=== PATIENT | male | born 1950 | race Two or more races ===

== ENCOUNTER 2017-12-08 20:19 | Inpatient (IN) | payer OTHER, MEDICAID ==
[~2017-12-08] VITALS: Ht 154.9 cm; Wt 62.6 kg
[2017-12-08] MEDS ORDERED: Solu-MEDROL 125mg Inj IVP ONE (20:30)
[2017-12-08] MEDS ORDERED: Albuterol ud Inhalation HHN ONE (20:30)
[2017-12-08] MEDS ORDERED: Ipratropium 0.02% Inh Soln 2.5ml UD HHN ONE (20:30)
--- NOTE | 2017-12-08 20:46 | Emergency Room Report ---
History of Present Illness General Chief Complaint: Dyspnea/Respdistress Source: EMS Present Illness HPI Patient presents with respiratory distress Patient upon arrival is unable to provide any history Patient unable to speak secondary to respiratory distress Paramedics report the patient has history of dialysis on Friday and Unknown regarding recent fevers Patient appears to have AV shunt in left upper arm Also has history of asthma History of present illness remains significantly limited Allergies: Coded Allergies: No Known Allergies (Unverified , 12/08/17) Patient History Limited by: medical condition Past Medical History: see triage record Pertinent Family History: unable to obtain Reviewed Nursing Documentation: PMH: Agreed; PSxH: Agreed Nursing Documentation-PMH Hx Dialysis: Yes - ESRD Review of Systems All Other Systems: limited - Other than the ones mentioned in the history of present illness all others are reviewed however they do stay limited due to the patient's mental status Physical Exam Vital Signs Date Time Temp Pulse Resp B/P (MAP) Pulse Ox O2 Delivery O2 Flow Rate FiO2 12/08/17 20:21 92 31 230/109 100 Bi-pap 12/08/17 20:29 50 Sp02 EP Interpretation: reviewed, normal General Appearance: severe distress - Shallow respirations respiratory distress Head: normocephalic, atraumatic Eyes: bilateral eye PERRL, bilateral eye EOMI ENT: normal pharynx, no angioedema Neck: supple, thyroid normal Respiratory: decreased breath sounds, accessory muscle use, other - Patient not moving air very well, very tight sounding, appears tachypneic, short of breath Cardiovascular #1: tachycardia Gastrointestinal: non tender, soft Musculoskeletal: normal inspection Neurologic: alert, oriented x3, responsive Skin: normal color, no rash Lymphatic: no adenopathy Procedures Critical Care Time Critical Care Time 50 minutes for multiple re-evaluations Initial critical presentation, respiratory distress concern for impending respiratory failure not including any procedural time, Medical Decision Making Diagnostic Impression: Primary Impression: Respiratory distress Additional Impression: ESRD (end stage renal disease) ER Course Patient is a fairly complex patient with multiple differential to consideration including but not limited to cardiac cardiopulmonary and vascular emergencies Patient was emergently placed on BiPAP Breathing treatment was also initiated patient has done significantly better with this Patient does not make any urine and diuretics have not been provided Patient requiring further close reevaluation continued care and ICU admission Labs Test 12/08/17 20:21 12/08/17 20:40 12/09/17 05:35 Arterial Blood pH 7.387 (7.350-7.450) Arterial Blood Partial Pressure CO2 48.8 mmHg (35.0-45.0) Arterial Blood Partial Pressure O2 138.2 mmHg (75.0-100.0) Arterial Blood HCO3 28.7 mmol/L (22.0-26.0) Arterial Blood Oxygen Saturation 98.1 % (92.0-98.0) Arterial Blood Base Excess 3.1 Chris Test Positive White Blood Count 10.5 K/UL (4.8-10.8) 7.5 K/UL (4.8-10.8) Red Blood Count 4.28 M/UL (4.70-6.10) 3.97 M/UL (4.70-6.10) Hemoglobin 11.4 G/DL (14.2-18.0) 10.6 G/DL (14.2-18.0) Hematocrit 36.6 % (42.0-52.0) 33.7 % (42.0-52.0) Mean Corpuscular Volume 85 FL (80-99) 85 FL (80-99) Mean Corpuscular Hemoglobin 26.5 PG (27.0-31.0) 26.8 PG (27.0-31.0) Mean Corpuscular Hemoglobin Concent 31.1 G/DL (32.0-36.0) 31.5 G/DL (32.0-36.0) Red Cell Distribution Width 14.4 % (11.6-14.8) 14.2 % (11.6-14.8) Platelet Count 197 K/UL (150-450) 190 K/UL (150-450) Mean Platelet Volume 7.9 FL (6.5-10.1) 8.6 FL (6.5-10.1) Neutrophils (%) (Auto) 78.0 % (45.0-75.0) % (45.0-75.0) Lymphocytes (%) (Auto) 9.2 % (20.0-45.0) % (20.0-45.0) Monocytes (%) (Auto) 5.8 % (1.0-10.0) % (1.0-10.0) Eosinophils (%) (Auto) 5.6 % (0.0-3.0) % (0.0-3.0) Basophils (%) (Auto) 1.3 % (0.0-2.0) % (0.0-2.0) Prothrombin Time 11.0 SEC (9.30-11.50) Prothromb Time International Ratio 1.1 (0.9-1.1) Activated Partial Thromboplast Time 22 SEC (23-33) Sodium Level 140 MMOL/L (136-145) 138 MMOL/L (136-145) Potassium Level 4.7 MMOL/L (3.5-5.1) 5.0 MMOL/L (3.5-5.1) Chloride Level 100 MMOL/L (98-107) 99 MMOL/L (98-107) Carbon Dioxide Level 31 MMOL/L (21-32) 27 MMOL/L (21-32) Anion Gap 9 mmol/L (5-15) 12 mmol/L (5-15) Blood Urea Nitrogen 42 mg/dL (7-18) 50 mg/dL (7-18) Creatinine 8.1 MG/DL (0.55-1.30) 9.1 MG/DL (0.55-1.30) Estimat Glomerular Filtration Rate 6.6 mL/min (>60) 5.8 mL/min (>60) Glucose Level 304 MG/DL (74-106) 286 MG/DL (74-106) Lactic Acid Level 1.50 mmol/L (0.4-2.0) Calcium Level 8.2 MG/DL (8.5-10.1) 8.1 MG/DL (8.5-10.1) Phosphorus Level 6.2 MG/DL (2.5-4.9) 5.3 MG/DL (2.5-4.9) Magnesium Level 2.4 MG/DL (1.8-2.4) Total Bilirubin 0.6 MG/DL (0.2-1.0) Aspartate Amino Transf (AST/SGOT) 36 U/L (15-37) Alanine Aminotransferase (ALT/SGPT) 29 U/L (12-78) Alkaline Phosphatase 127 U/L (46-116) Total Creatine Kinase 113 U/L (26-308) Creatine Kinase MB 1.3 NG/ML (0.0-3.6) Creatine Kinase MB Relative Index 1.1 Troponin I 0.000 ng/mL (0.000-0.056) 0.066 ng/mL (0.000-0.056) Pro-B-Type Natriuretic Peptide > 47789 pg/mL (0-125) Total Protein 7.5 G/DL (6.4-8.2) Albumin 3.7 G/DL (3.4-5.0) 3.4 G/DL (3.4-5.0) Globulin 3.8 g/dL Albumin/Globulin Ratio 1.0 (1.0-2.7) Lipase 185 U/L (73-393) Differential Total Cells Counted 100 Neutrophils % (Manual) 92 % (45-75) Lymphocytes % (Manual) 5 % (20-45) Monocytes % (Manual) 2 % (1-10) Eosinophils % (Manual) 0 % (0-3) Basophils % (Manual) 0 % (0-2) Band Neutrophils 1 % (0-8) Platelet Estimate Adequate Platelet Morphology Normal Hypochromasia 1+ C-Reactive Protein, Quantitative 2.7 mg/dL (0.00-0.90) EKG Diagnostic Results Rate: tachycardiac Rhythm: NSR ST Segments: other - Nonspecific ST/T-wave changes Rhythm Strip Diag. Results EP Interpretation: yes Rate: 110 Rhythm: no PVC's, no ectopy, other - Sinus tach Chest X-Ray Diagnostic Results Chest X-Ray Diagnostic Results : Chest X-Ray Ordered: Yes # of Views/Limited/Complete: 1 View Indication: Shortness of Breath EP Interpretation: Yes Interpretation: no consolidation, no pneumothorax, other - Cardiomegaly, pulmonary congestion Impression: Other - Acute CHF Electronically Signed by: Omar Villegas DO Last Vital Signs Date Time Temp Pulse Resp B/P (MAP) Pulse Ox O2 Delivery O2 Flow Rate FiO2 12/08/17 20:42 93 25 100 Bi-pap 50 12/08/17 20:21 230/109 Status: improved Disposition: ADMITTED INPATIENT Condition: Critical Omar Villegas DO Dec 08, 2017 20:46
[2017-12-08] MEDS ORDERED: JANUVIA25 MG ORAL (20:50)
[2017-12-08] MEDS ORDERED: CARVEDILOL3.125 MG ORAL (20:50)
[2017-12-08 20:55] VITALS: BP 191/98
[2017-12-08 21:11] LABS: BASOPHILS % (AUTO) 1.3 % (0.0-2.0); EOSINOPHILS % (AUTO) 5.6 % (0.0-3.0); HEMATOCRIT 36.6 % (42.0-52.0); HEMOGLOBIN 11.4 G/DL (14.2-18.0); LYMPHOCYTES % (AUTO) 9.2 % (20.0-45.0); MEAN CORPUSCULAR VOLUME 85 FL (80-99); MONOCYTES % (AUTO) 5.8 % (1.0-10.0); PLATELET COUNT 197 K/UL (150-450); RED BLOOD COUNT 4.28 M/UL (4.70-6.10); RED CELL DISTRIBUTION WIDTH 14.4 % (11.6-14.8); WHITE BLOOD COUNT 10.5 K/UL (4.8-10.8)
[2017-12-08 21:13] LABS: ANION GAP 9 mmol/L (5-15); BLOOD UREA NITROGEN 42 mg/dL (7-18); CALCIUM 8.2 MG/DL (8.5-10.1); CARBON DIOXIDE 31 MMOL/L (21-32); CHLORIDE 100 MMOL/L (98-107); CREATININE 8.1 MG/DL (0.55-1.30); POTASSIUM 4.7 MMOL/L (3.5-5.1); SODIUM 140 MMOL/L (136-145)
[2017-12-08 21:17] LABS: INR 1.1 (0.9-1.1)
[2017-12-08 21:27] LABS: ALANINE AMINOTRANSFERASE 29 U/L (12-78); ALBUMIN 3.7 G/DL (3.4-5.0); ALKALINE PHOSPHATASE 127 U/L (46-116); ASPARTATE AMINO TRANSFERASE 36 U/L (15-37); BILIRUBIN,TOTAL 0.6 MG/DL (0.2-1.0); CKMB 1.3 NG/ML (0.0-3.6); CREATINE KINASE 113 U/L (26-308); PHOSPHORUS 6.2 MG/DL (2.5-4.9)
[2017-12-08 22:30] VITALS: BP 179/72
[2017-12-08] MEDS ORDERED: Albuterol/Ipratropium 3ml neb HHN PRN (22:30)
[2017-12-08] MEDS ORDERED: Miralax 17gm pkt ORAL PRN (22:30)
[2017-12-08 23:00] VITALS: BP 190/82
[2017-12-09] VITALS (21 sets, daily range): BP systolic 140–193; BP diastolic 71–117
[2017-12-09 06:30] LABS: HEMATOCRIT 33.7 % (42.0-52.0); HEMOGLOBIN 10.6 G/DL (14.2-18.0); MEAN CORPUSCULAR VOLUME 85 FL (80-99); PLATELET COUNT 190 K/UL (150-450); RED BLOOD COUNT 3.97 M/UL (4.70-6.10); RED CELL DISTRIBUTION WIDTH 14.2 % (11.6-14.8); WHITE BLOOD COUNT 7.5 K/UL (4.8-10.8)
[2017-12-09] MEDS: NovoLOG Insulin Flexpen SUBQ SCH ×4 (06:46→21:07)
[2017-12-09 06:55] LABS: ALBUMIN 3.4 G/DL (3.4-5.0); ANION GAP 12 mmol/L (5-15); BLOOD UREA NITROGEN 50 mg/dL (7-18); CALCIUM 8.1 MG/DL (8.5-10.1); CARBON DIOXIDE 27 MMOL/L (21-32); CHLORIDE 99 MMOL/L (98-107); CREATININE 9.1 MG/DL (0.55-1.30); PHOSPHORUS 5.3 MG/DL (2.5-4.9); SODIUM 138 MMOL/L (136-145)
[2017-12-09] MEDS ORDERED: sitaGLIPtin 25mg tab ORAL SCH (09:00)
[2017-12-09] MEDS ORDERED: Heparin 5000 units/ml inj SUBQ SCH (09:00)
--- NOTE | 2017-12-09 10:46 | Pulmonolgy Critical Care Note ---
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, 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 with: nurses, 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, 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 image - Objective Last 24 Hour Vital Signs Date Time Temp Pulse Resp B/P (MAP) Pulse Ox O2 Delivery O2 Flow Rate FiO2 12/09/17 10:00 84 20 187/90 96 Nasal Cannula 2.0 12/09/17 09:20 76 16 98 Facial 28 12/09/17 09:00 83 19 175/117 98 Nasal Cannula 2.0 12/09/17 08:48 191/92 12/09/17 08:48 73 191/92 12/09/17 08:00 73 12/09/17 08:00 97.6 84 19 191/92 98 Bi-pap 50 97.6 12/09/17 07:35 75 18 100 Facial 50 12/09/17 07:35 98 18 Nasal Cannula 2.0 28 12/09/17 07:00 74 19 190/76 100 Bi-pap 50 12/09/17 06:00 66 18 170/73 100 Bi-pap 50 12/09/17 05:00 72 16 174/92 100 Bi-pap 50 12/09/17 04:51 70 17 100 Facial 50 12/09/17 04:00 97.8 78 21 189/81 100 Bi-pap 50 97.8 12/09/17 04:00 50.0 12/09/17 04:00 78 12/09/17 03:00 72 18 193/82 100 Bi-pap 50 12/09/17 02:41 74 23 100 Facial 50 12/09/17 02:00 74 20 188/86 100 Bi-pap 50 12/09/17 01:47 86 23 99 Bi-pap 50 12/09/17 01:31 82 24 100 Bi-pap 50 12/09/17 01:29 81 24 100 Facial 50 12/09/17 01:00 76 21 190/92 99 Bi-pap 50 12/09/17 00:00 60 16 185/89 100 Bi-pap 50 12/08/17 23:11 50.0 12/08/17 23:08 73 22 100 Facial 50 12/08/17 23:00 98.6 68 20 190/82 99 Bi-pap 50 98.6 12/08/17 23:00 70 12/08/17 22:30 98.0 25 179/72 100 Bi-pap 50 98.0 12/08/17 20:55 98.0 25 191/98 100 Bi-pap 50 98.0 12/08/17 20:55 93 25 Bi-pap 50 12/08/17 20:42 93 25 100 Bi-pap 50 12/08/17 20:33 92 31 100 Facial 50 12/08/17 20:29 92 31 100 Bi-pap 50 12/08/17 20:21 92 31 230/109 100 Bi-pap Status: awake Condition: critical HEENT: atraumatic Neck: full ROM Lungs: clear Heart: HR/BP stable Abdomen: soft, active bowel sounds, feeding tube Extremities: edema Accucheck: 265 Critical Care - Subjective ROS Limited/Unobtainable: Yes ICU Day: 1 Interval Events: 67 year old male with hx of HTN, DM, Asthma, ESRF, on HD, Tue, Thur, Sat, brought in by paramedics with respiratory distress. Pt was unable to give any history on presentation. His initial CXR sghoed pulmonary edema. She was put on BIPAP and transferred to ICU. Currently pt is comfortable, converses in [place]. FI02: 28 Sputum Amount: None I&O: Intake and Output 12/08/17 12/09/17 19:00 07:00 Intake Total 170 ml Output Total 30 ml Balance 140 ml Intake Oral 170 ml Output Urine Total 30 ml # Voids 1 CXR: pulmonary edema Labs: Laboratory Tests Test 12/08/17 20:21 12/08/17 20:40 12/09/17 05:35 Arterial Blood pH 7.387 (7.350-7.450) Arterial Blood Partial Pressure CO2 48.8 mmHg (35.0-45.0) H Arterial Blood Partial Pressure O2 138.2 mmHg (75.0-100.0) H Arterial Blood HCO3 28.7 mmol/L (22.0-26.0) H Arterial Blood Oxygen Saturation 98.1 % (92.0-98.0) H Arterial Blood Base Excess 3.1 Chris Test Positive White Blood Count 10.5 K/UL (4.8-10.8) 7.5 K/UL (4.8-10.8) Red Blood Count 4.28 M/UL (4.70-6.10) L 3.97 M/UL (4.70-6.10) L Hemoglobin 11.4 G/DL (14.2-18.0) L 10.6 G/DL (14.2-18.0) L Hematocrit 36.6 % (42.0-52.0) L 33.7 % (42.0-52.0) L Mean Corpuscular Volume 85 FL (80-99) 85 FL (80-99) Mean Corpuscular Hemoglobin 26.5 PG (27.0-31.0) L 26.8 PG (27.0-31.0) L Mean Corpuscular Hemoglobin Concent 31.1 G/DL (32.0-36.0) L 31.5 G/DL (32.0-36.0) L Red Cell Distribution Width 14.4 % (11.6-14.8) 14.2 % (11.6-14.8) Platelet Count 197 K/UL (150-450) 190 K/UL (150-450) Mean Platelet Volume 7.9 FL (6.5-10.1) 8.6 FL (6.5-10.1) Neutrophils (%) (Auto) 78.0 % (45.0-75.0) H % (45.0-75.0) Lymphocytes (%) (Auto) 9.2 % (20.0-45.0) L % (20.0-45.0) Monocytes (%) (Auto) 5.8 % (1.0-10.0) % (1.0-10.0) Eosinophils (%) (Auto) 5.6 % (0.0-3.0) H % (0.0-3.0) Basophils (%) (Auto) 1.3 % (0.0-2.0) % (0.0-2.0) Prothrombin Time 11.0 SEC (9.30-11.50) Prothromb Time International Ratio 1.1 (0.9-1.1) Activated Partial Thromboplast Time 22 SEC (23-33) L Sodium Level 140 MMOL/L (136-145) 138 MMOL/L (136-145) Potassium Level 4.7 MMOL/L (3.5-5.1) 5.0 MMOL/L (3.5-5.1) Chloride Level 100 MMOL/L (98-107) 99 MMOL/L (98-107) Carbon Dioxide Level 31 MMOL/L (21-32) 27 MMOL/L (21-32) Anion Gap 9 mmol/L (5-15) 12 mmol/L (5-15) Blood Urea Nitrogen 42 mg/dL (7-18) H 50 mg/dL (7-18) H Creatinine 8.1 MG/DL (0.55-1.30) H 9.1 MG/DL (0.55-1.30) H Estimat Glomerular Filtration Rate 6.6 mL/min (>60) 5.8 mL/min (>60) Glucose Level 304 MG/DL (74-106) H 286 MG/DL (74-106) H Lactic Acid Level 1.50 mmol/L (0.4-2.0) Calcium Level 8.2 MG/DL (8.5-10.1) L 8.1 MG/DL (8.5-10.1) L Phosphorus Level 6.2 MG/DL (2.5-4.9) H 5.3 MG/DL (2.5-4.9) H Magnesium Level 2.4 MG/DL (1.8-2.4) Total Bilirubin 0.6 MG/DL (0.2-1.0) Aspartate Amino Transf (AST/SGOT) 36 U/L (15-37) Alanine Aminotransferase (ALT/SGPT) 29 U/L (12-78) Alkaline Phosphatase 127 U/L (46-116) H Total Creatine Kinase 113 U/L (26-308) Creatine Kinase MB 1.3 NG/ML (0.0-3.6) Creatine Kinase MB Relative Index 1.1 Troponin I 0.000 ng/mL (0.000-0.056) 0.066 ng/mL (0.000-0.056) Pro-B-Type Natriuretic Peptide > 21089 pg/mL (0-125) H Total Protein 7.5 G/DL (6.4-8.2) Albumin 3.7 G/DL (3.4-5.0) 3.4 G/DL (3.4-5.0) Globulin 3.8 g/dL Albumin/Globulin Ratio 1.0 (1.0-2.7) Lipase 185 U/L (73-393) Neutrophils % (Manual) Pending Lymphocytes % (Manual) Pending Platelet Estimate Pending Platelet Morphology Pending C-Reactive Protein, Quantitative 2.7 mg/dL (0.00-0.90) H Dmitriy Hines MD Dec 09, 2017 10:46
--- NOTE | 2017-12-09 11:14 | Consultation ---
Consult Note Consult Note asked to eval for dialysis management Patient presents with respiratory distress Patient upon arrival is unable to provide any history Patient unable to speak secondary to respiratory distress Paramedics report the patient has history of dialysis on Friday and Unknown regarding recent fevers Patient appears to have AV shunt in left upper arm Also has history of asthma No Known Allergies (Unverified , 12/08/17) Hx Dialysis: Yes - ESRD patient been on dialysis for 5 years HTN DM Due dialysis today . Assessment/Plan ESRD fistula acces left arm Respiratory distress: CHF and or Pneumonia HTN DM HD BLANKA Adjust BP meds Pulm support 2D Echo Per orders PAPI SHANE Dec 09, 2017 11:14
--- NOTE | 2017-12-09 12:25 | Diagnostic Imaging Report ---
Indication: Shortness of breath Technique: One view of the chest Comparison: none Findings: Heart is enlarged. There is bilateral diffuse interstitial and airspace edema. There is suggestion of small bilateral pleural effusions. Impression: Cardiomegaly Evidence of pulmonary edema
[2017-12-09] MEDS: Docusate 100mg cap ORAL SCH ×2 (13:03→18:57)
[2017-12-09] MEDS: Nateglinide 60mg tab ORAL SCH ×2 (13:03→16:51)
--- NOTE | 2017-12-09 17:25 | History & Physical ---
History and Physical History & Physicial Dictated for Int Med-Dr Miller [facility] no. [id number]. Oren Gonzales MD Dec 09, 2017 17:25
--- NOTE | 2017-12-09 17:34 | Cardiac Electrophysiology PN ---
Subjective Subjective [id number] Objective Last 24 Hour Vital Signs Date Time Temp Pulse Resp B/P (MAP) Pulse Ox O2 Delivery O2 Flow Rate FiO2 12/09/17 17:12 Nasal Cannula 2.0 12/09/17 17:10 97.7 77 16 181/76 Nasal Cannula 2.0 97.7 12/09/17 17:00 77 16 181/76 99 Nasal Cannula 2.0 12/09/17 16:00 66 12/09/17 16:00 98.1 64 16 140/73 99 Nasal Cannula 2.0 98.1 66 12/09/17 15:00 64 16 152/71 100 Nasal Cannula 2.0 12/09/17 14:00 98.1 75 16 167/71 Nasal Cannula 2.0 98.1 12/09/17 14:00 Nasal Cannula 2.0 12/09/17 14:00 74 18 167/71 100 Nasal Cannula 2.0 12/09/17 13:00 84 20 154/77 99 Nasal Cannula 2.0 12/09/17 12:00 78 12/09/17 12:00 98.0 78 18 170/88 100 Nasal Cannula 2.0 98.0 12/09/17 11:33 79 181/80 12/09/17 11:18 79 16 97 Facial 28 12/09/17 11:00 73 20 181/80 99 Nasal Cannula 2.0 12/09/17 10:00 84 20 187/90 96 Nasal Cannula 2.0 12/09/17 09:20 76 16 98 Facial 28 12/09/17 09:00 83 19 175/117 98 Nasal Cannula 2.0 12/09/17 08:48 191/92 12/09/17 08:48 73 191/92 12/09/17 08:00 73 12/09/17 08:00 97.6 84 19 191/92 98 Bi-pap 50 97.6 12/09/17 07:35 75 18 100 Facial 50 12/09/17 07:35 98 18 Nasal Cannula 2.0 28 12/09/17 07:00 74 19 190/76 100 Bi-pap 50 12/09/17 06:00 66 18 170/73 100 Bi-pap 50 12/09/17 05:00 72 16 174/92 100 Bi-pap 50 12/09/17 04:51 70 17 100 Facial 50 12/09/17 04:00 97.8 78 21 189/81 100 Bi-pap 50 97.8 12/09/17 04:00 50.0 12/09/17 04:00 78 12/09/17 03:00 72 18 193/82 100 Bi-pap 50 12/09/17 02:41 74 23 100 Facial 50 12/09/17 02:00 74 20 188/86 100 Bi-pap 50 12/09/17 01:47 86 23 99 Bi-pap 50 12/09/17 01:31 82 24 100 Bi-pap 50 12/09/17 01:29 81 24 100 Facial 50 12/09/17 01:00 76 21 190/92 99 Bi-pap 50 12/09/17 00:00 60 16 185/89 100 Bi-pap 50 12/08/17 23:11 50.0 12/08/17 23:08 73 22 100 Facial 50 12/08/17 23:00 98.6 68 20 190/82 99 Bi-pap 50 98.6 12/08/17 23:00 70 12/08/17 22:30 98.0 25 179/72 100 Bi-pap 50 98.0 12/08/17 20:55 98.0 25 191/98 100 Bi-pap 50 98.0 12/08/17 20:55 93 25 Bi-pap 50 12/08/17 20:42 93 25 100 Bi-pap 50 12/08/17 20:33 92 31 100 Facial 50 12/08/17 20:29 92 31 100 Bi-pap 50 12/08/17 20:21 92 31 230/109 100 Bi-pap Intake and Output 12/08/17 12/09/17 19:00 07:00 Intake Total 170 ml Output Total 30 ml Balance 140 ml Intake Oral 170 ml Output Urine Total 30 ml # Voids 1 Laboratory Tests Test 12/08/17 20:21 12/08/17 20:40 12/09/17 05:35 Arterial Blood pH 7.387 (7.350-7.450) Arterial Blood Partial Pressure CO2 48.8 mmHg (35.0-45.0) H Arterial Blood Partial Pressure O2 138.2 mmHg (75.0-100.0) H Arterial Blood HCO3 28.7 mmol/L (22.0-26.0) H Arterial Blood Oxygen Saturation 98.1 % (92.0-98.0) H Arterial Blood Base Excess 3.1 Chris Test Positive White Blood Count 10.5 K/UL (4.8-10.8) 7.5 K/UL (4.8-10.8) Red Blood Count 4.28 M/UL (4.70-6.10) L 3.97 M/UL (4.70-6.10) L Hemoglobin 11.4 G/DL (14.2-18.0) L 10.6 G/DL (14.2-18.0) L Hematocrit 36.6 % (42.0-52.0) L 33.7 % (42.0-52.0) L Mean Corpuscular Volume 85 FL (80-99) 85 FL (80-99) Mean Corpuscular Hemoglobin 26.5 PG (27.0-31.0) L 26.8 PG (27.0-31.0) L Mean Corpuscular Hemoglobin Concent 31.1 G/DL (32.0-36.0) L 31.5 G/DL (32.0-36.0) L Red Cell Distribution Width 14.4 % (11.6-14.8) 14.2 % (11.6-14.8) Platelet Count 197 K/UL (150-450) 190 K/UL (150-450) Mean Platelet Volume 7.9 FL (6.5-10.1) 8.6 FL (6.5-10.1) Neutrophils (%) (Auto) 78.0 % (45.0-75.0) H % (45.0-75.0) Lymphocytes (%) (Auto) 9.2 % (20.0-45.0) L % (20.0-45.0) Monocytes (%) (Auto) 5.8 % (1.0-10.0) % (1.0-10.0) Eosinophils (%) (Auto) 5.6 % (0.0-3.0) H % (0.0-3.0) Basophils (%) (Auto) 1.3 % (0.0-2.0) % (0.0-2.0) Prothrombin Time 11.0 SEC (9.30-11.50) Prothromb Time International Ratio 1.1 (0.9-1.1) Activated Partial Thromboplast Time 22 SEC (23-33) L Sodium Level 140 MMOL/L (136-145) 138 MMOL/L (136-145) Potassium Level 4.7 MMOL/L (3.5-5.1) 5.0 MMOL/L (3.5-5.1) Chloride Level 100 MMOL/L (98-107) 99 MMOL/L (98-107) Carbon Dioxide Level 31 MMOL/L (21-32) 27 MMOL/L (21-32) Anion Gap 9 mmol/L (5-15) 12 mmol/L (5-15) Blood Urea Nitrogen 42 mg/dL (7-18) H 50 mg/dL (7-18) H Creatinine 8.1 MG/DL (0.55-1.30) H 9.1 MG/DL (0.55-1.30) H Estimat Glomerular Filtration Rate 6.6 mL/min (>60) 5.8 mL/min (>60) Glucose Level 304 MG/DL (74-106) H 286 MG/DL (74-106) H Lactic Acid Level 1.50 mmol/L (0.4-2.0) Calcium Level 8.2 MG/DL (8.5-10.1) L 8.1 MG/DL (8.5-10.1) L Phosphorus Level 6.2 MG/DL (2.5-4.9) H 5.3 MG/DL (2.5-4.9) H Magnesium Level 2.4 MG/DL (1.8-2.4) Total Bilirubin 0.6 MG/DL (0.2-1.0) Aspartate Amino Transf (AST/SGOT) 36 U/L (15-37) Alanine Aminotransferase (ALT/SGPT) 29 U/L (12-78) Alkaline Phosphatase 127 U/L (46-116) H Total Creatine Kinase 113 U/L (26-308) Creatine Kinase MB 1.3 NG/ML (0.0-3.6) Creatine Kinase MB Relative Index 1.1 Troponin I 0.000 ng/mL (0.000-0.056) 0.066 ng/mL (0.000-0.056) Pro-B-Type Natriuretic Peptide > 46473 pg/mL (0-125) H Total Protein 7.5 G/DL (6.4-8.2) Albumin 3.7 G/DL (3.4-5.0) 3.4 G/DL (3.4-5.0) Globulin 3.8 g/dL Albumin/Globulin Ratio 1.0 (1.0-2.7) Lipase 185 U/L (73-393) Differential Total Cells Counted 100 Neutrophils % (Manual) 92 % (45-75) H Lymphocytes % (Manual) 5 % (20-45) L Monocytes % (Manual) 2 % (1-10) Eosinophils % (Manual) 0 % (0-3) Basophils % (Manual) 0 % (0-2) Band Neutrophils 1 % (0-8) Platelet Estimate Adequate Platelet Morphology Normal Hypochromasia 1+ C-Reactive Protein, Quantitative 2.7 mg/dL (0.00-0.90) H Brian Milner MD Dec 09, 2017 17:33
--- NOTE | 2017-12-09 19:02 | Cardiology Report ---
APPROVED REPORT EXAM: Two-dimensional and M-mode echocardiogram with Doppler and color Doppler. INDICATION Left ventricular function M-Mode DIMENSIONS IVSd1.3 (0.7-1.1cm)Left Atrium (MM)4.9 (1.6-4.0cm) LVDd5.4 (3.5-5.6cm)Aortic Root2.6 (2.0-3.7cm) PWd1.7 (0.7-1.1cm)Aortic Cusp Exc.1.8 (1.5-2.0cm) LVDs4.2 (2.5-4.0cm) PWs1.4 cm Normal left ventricular chamber size, mild to moderate global hypokniesis. Left ventricular ejection fraction estimated to be 40%. Mild left ventricular hypertrophy. No evidence of pericardial or pleural effusion. Right cardiac chamber sizes are within normal limits. Mild left atrial enlargement by 2D. Focal aortic valve sclerosis with adequate cusp excursion. Thickened mitral valve leaflets with normal excursion. Mild mitral annulus and aortic root calcification. Pulmonic valve is well visualized. Normal tricuspid valve structure. IVC is normal in size non-collapsible with respiration indicate increased RA pressure. A color flow and spectral Doppler study was performed and revealed: No aortic regurgitation. Moderate mitral regurgitation ( 2 jets). Mitral inflow velocities indicates possible pseudo normalization pattern implying significant left ventricular diastolic dysfunction. Trace tricuspid regurgitation. Tricuspid systolic velocities suggests peak right ventricular systolic pressure of 25 mmHg likely an underestimation as the TR velocity profile is poorly defined
--- NOTE | 2017-12-09 20:00 | History and Physical Report ---
DATE OF ADMISSION: 12/09/2017 CHIEF COMPLAINT: The patient is a 67-year-old male with a chief complaint of shortness of breath. HISTORY OF PRESENT ILLNESS: Began on 12/08/2017. The patient began to experience shortness of breath. The patient has a history of end-stage renal disease and is on hemodialysis every Friday, Friday, and Friday. The patient's states his last dialysis was 12/06/2017. The patient presented to [facility] emergency room. The patient was admitted for shortness of breath, probably secondary to volume overload. PAST MEDICAL HISTORY: Significant for, 1. Type 2 diabetes. 2. End-stage renal disease for the past 5 years. 3. Hypertension. 4. Diabetic retinopathy in the right eye. PAST SURGICAL HISTORY: Significant for, 1. Left arteriovenous graft for dialysis. 2. Right eye surgery. CURRENT MEDICATIONS: 1. Carvedilol 3.125 mg p.o. twice daily. 2. Januvia 25 mg p.o. daily. ALLERGIES: No known drug allergies. SOCIAL HISTORY: The patient is , however, his lives in [facility]. The patient denies tobacco use having quit 10 years previously. The patient denies alcohol use. REVIEW OF SYSTEMS: CONSTITUTIONAL: The patient denies weight loss or weight gain. The patient denies fevers or chills. HEENT: The patient denies ear or throat pain. The patient denies headache. CARDIOVASCULAR: The patient denies palpitations or chest pain. CHEST: The patient complains of cough and shortness of breath as above. The patient denies wheezes. ABDOMEN: The patient denies nausea, vomiting, diarrhea, or constipation. GENITOURINARY: The patient denies dysuria or increased frequency of urination. NEUROMUSCULAR: The patient denies seizures or generalized weakness. PHYSICAL EXAMINATION: VITAL SIGNS: Temperature 98, respirations 18, pulse 70, and blood pressure 170/80. GENERAL: The patient is a well-developed and well-nourished male, in no apparent distress. HEENT: Eyes, pupils equal and responsive to light and accommodation. Extraocular movements are intact. NECK: Supple without lymphadenopathy. CHEST: Lungs are clear to auscultation bilaterally without wheezes or rales. CARDIOVASCULAR: Regular rhythm and rate. S1 and S2 are normal without murmurs, rubs, or gallops. ABDOMEN: Soft, nontender, and nondistended. Positive bowel sounds. No evidence of hepatosplenomegaly. Currently, no rebound or guarding noted. EXTREMITIES: Negative for clubbing, cyanosis, or edema. There is presence of a left arteriovenous graft in the left forearm. NEUROLOGIC: Cranial nerves II through XII are grossly intact without focal deficits. Motor strength is 5/5 bilaterally. Deep tendon reflexes are 2+ plantar. LABORATORY STUDIES: WBC 10.5, hemoglobin 11.4, hematocrit 36.6, and platelets 197,000. Sodium 138, potassium 5.0, chloride 99, CO2 27, BUN 15, creatinine 9.1, and glucose elevated at 286. Troponin elevated at 0.066. Chest x-ray was reported evidence of pulmonary edema. ASSESSMENT: This is a 67-year-old male. 1. Dyspnea. 2. Congestive heart failure. 3. Diabetes type 2. 4. Hypertension. 5. Diabetic retinopathy. 6. Elevated troponin. 7. End Stage Renal Disease on hemodialysis TREATMENT: 1. Dyspnea/shortness of breath. A Pulmonary consultation has been obtained with Dr. Dmitriy Hines. Dyspnea and shortness of breath may be secondary to volume overload and congestive heart failure. 2. Congestive heart failure/elevated troponin. A Cardiology consultation has been obtained with Dr. Brian Milner. We will follow recommendations of Cardiology. Troponin may be secondary to renal failure. Serial troponin levels will be performed. 3. Hypertension. Continue Coreg as above. 4. Diabetic retinopathy, status post surgery. 5. End stage Renal disease: A nephrology consultation has been obtained with Dr. Barbour. Hemodialysis per nephrology. Oren Gonzales M.D. DR: JOHN JOB#: [id number] CC: BRITTNEY
[2017-12-09] MEDS ORDERED: Miralax 17gm pkt ORAL PRN (21:00)
[2017-12-09] MEDS ORDERED: Tamsulosin 0.4mg cap ORAL SCH ×2 (21:00)
[2017-12-09] MEDS ORDERED: Albuterol/Ipratropium 3ml neb HHN PRN (21:00)
[2017-12-09] MEDS ORDERED: Carvedilol 6.25mg Tab ORAL SCH (21:00)
[2017-12-09] MEDS: Carvedilol 6.25mg Tab ORAL SCH (21:02)
[2017-12-09] MEDS: Heparin 5000 units/ml inj SUBQ SCH (21:05)
--- NOTE | 2017-12-09 22:45 | Consultation ---
DATE OF CONSULTATION: 12/09/2017 CARDIOLOGY CONSULTATION CONSULTING PHYSICIAN: Brian Milner M.D. REQUESTING PHYSICIAN: Latrell Miller M.D. REASON FOR CONSULTATION: Management of hypertension and elevated troponin. HISTORY OF PRESENT ILLNESS: The patient is a very pleasant 67-year-old gentleman with history of hypertension and end-stage renal disease, on hemodialysis with AV shunt to the left arm, presents to the emergency room with increasing shortness of breath. The patient was not able to provide any history due to respiratory distress. The patient was admitted to intensive care unit. His blood pressure in the ER was 230/109 and his first troponin was negative. Second troponin was elevated. Hence, Cardiology consultation was obtained for further evaluation and management. PAST MEDICAL HISTORY: 1. Hypertension. 2. End-stage renal disease, on hemodialysis. FAMILY HISTORY: Noncontributory. REVIEW OF SYSTEMS: Review of systems was negative other than what was mentioned in the history of present illness. PHYSICAL EXAMINATION: VITAL SIGNS: Blood pressure is 181/76, pulse 77, respirations 16, and temperature 97.7 degrees. HEAD AND NECK: Showed no JVD. LUNGS: Coarse rhonchi. CARDIOVASCULAR: Regular S1 and S2 with no gallop or murmur. ABDOMEN: Soft. EXTREMITIES: Fistula in the left arm. LABORATORY AND DIAGNOSTIC DATA: Labs show white count of 7.4, hemoglobin 10.7, hematocrit 33.7, and platelet count of 190. Sodium 138, potassium 5.0, BUN of 50, creatinine 9.1, and glucose of 286. The first troponin was negative and second troponin is 0.066. ASSESSMENT AND PLAN: 1. Elevated troponin. The first troponin is negative. The second troponin is mildly elevated. We will completely rule out OK protocol. His echocardiogram showed ejection fraction of 50%. We will repeat EKG and troponin. The patient already on Coreg at 3.125 mg daily that will be increased to 6.25 mg b.i.d. 2. Accelerated hypertension, blood pressure of 130. The patient on Norvasc 10 mg daily. Increase Coreg to 6.25 mg b.i.d. The patient is also on hemodialysis and add p.r.n. clonidine to his medical regimen. 3. End-stage renal disease, on hemodialysis. 4. Diabetes. Thank you very much, Dr. Miller, for allowing me to participate in the care of this patient. Please do not hesitate to contact me for any questions regarding my evaluation. Brian Milner M.D. DR: GUILHERME JOB#: [id number] CC:
[2017-12-10 04:00] VITALS: BP 142/79
[2017-12-10] MEDS: Nateglinide 60mg tab ORAL SCH ×2 (06:20→11:06)
[2017-12-10] MEDS: NovoLOG Insulin Flexpen SUBQ SCH ×2 (06:22→11:07)
--- NOTE | 2017-12-10 07:11 | Cardiology Report ---
APPROVED REPORT EKG Measurement Heart [id number] Normal sinus rhythm Left axis deviation Abnormal ECG
[2017-12-10 07:50] LABS: BASOPHILS % (AUTO) 0.9 % (0.0-2.0); EOSINOPHILS % (AUTO) 0.4 % (0.0-3.0); HEMATOCRIT 31.5 % (42.0-52.0); LYMPHOCYTES % (AUTO) 8.2 % (20.0-45.0); MEAN CORPUSCULAR VOLUME 85 FL (80-99); MONOCYTES % (AUTO) 6.2 % (1.0-10.0); NEUTROPHILS % (AUTO) 84.3 % (45.0-75.0); PLATELET COUNT 164 K/UL (150-450); RED BLOOD COUNT 3.73 M/UL (4.70-6.10); RED CELL DISTRIBUTION WIDTH 14.3 % (11.6-14.8); WHITE BLOOD COUNT 12.5 K/UL (4.8-10.8)
[2017-12-10 08:00] VITALS: BP 145/79
[2017-12-10 08:11] LABS: ALANINE AMINOTRANSFERASE 19 U/L (12-78); ALBUMIN 3.1 G/DL (3.4-5.0); ALKALINE PHOSPHATASE 79 U/L (46-116); ANION GAP 10 mmol/L (5-15); ASPARTATE AMINO TRANSFERASE 9 U/L (15-37); BILIRUBIN,TOTAL 0.5 MG/DL (0.2-1.0); BLOOD UREA NITROGEN 51 mg/dL (7-18); CALCIUM 7.4 MG/DL (8.5-10.1); CARBON DIOXIDE 30 MMOL/L (21-32); CHLORIDE 101 MMOL/L (98-107); CHOLESTEROL 143 MG/DL (< 200); CREATINE KINASE 63 U/L (26-308); CREATININE 7.9 MG/DL (0.55-1.30); GAMMA GLUTAMYL TRANSPEPTIDASE 30 U/L (5-85); HDL CHOLESTEROL 42 MG/DL (40-60); PHOSPHORUS 5.8 MG/DL (2.5-4.9); SODIUM 141 MMOL/L (136-145); TRIGLYCERIDES 108 MG/DL (30-150)
[2017-12-10] MEDS: Heparin 5000 units/ml inj SUBQ SCH (08:13)
[2017-12-10] MEDS: Carvedilol 6.25mg Tab ORAL SCH (08:14)
[2017-12-10] MEDS: Docusate 100mg cap ORAL SCH ×2 (08:14→12:06)
--- NOTE | 2017-12-10 10:05 | Diagnostic Imaging Report ---
Indication: Cough Technique: One view of the chest Comparison: 12/08/2017 Findings: Interim improvement of previously demonstrated interstitial and airspace edema, with some residual congestion. The heart is enlarged. There are small bilateral pleural effusions again demonstrated Impression: Improved but persistent interstitial and airspace edema, over 2 days
--- NOTE | 2017-12-10 10:40 | Internal Med Progress Note ---
Subjective Date of Service: Dec 10, 2017 Physician Name JanetOren Attending Physician Latrell Miller MD Current Medications Medications (Trade) Dose Ordered Sig/Charles Route PRN Reason Start Time Stop Time Status Last Admin Dose Admin Acetaminophen (Tylenol) 650 mg Q4H PRN ORAL Fever (temp>100.5F) 12/09/17 21:00 01/07/18 20:59 Albuterol/ Ipratropium (Albuterol/ Ipratropium) 3 ml Q4H PRN HHN Shortness of Breath 12/09/17 21:00 12/14/17 20:59 Amlodipine Besylate (Norvasc) 10 mg DAILY ORAL 12/10/17 09:00 01/09/18 08:59 12/10/17 08:15 Carvedilol (Coreg) 6.25 mg EVERY 12 HOURS ORAL 12/09/17 21:00 01/08/18 20:59 12/10/17 08:14 Clonidine HCl (Catapres Tab) 0.1 mg Q4H PRN ORAL for SBP>160 12/09/17 21:00 01/08/18 20:59 Dextrose (Dextrose 50%) 25 ml STAT PRN IV Hypoglycemia 12/09/17 21:00 01/07/18 20:59 Dextrose (Dextrose 50%) 50 ml STAT PRN IV Hypoglycemia 12/09/17 21:00 01/07/18 20:59 Docusate Sodium (Colace) 100 mg THREE TIMES A DAY ORAL 12/10/17 09:00 01/08/18 12:59 12/10/17 08:14 Heparin Sodium (Porcine) (Heparin 5000 units/ml) 5,000 units EVERY 12 HOURS SUBQ 12/09/17 21:00 01/08/18 08:59 12/10/17 08:13 Insulin Aspart (NovoLOG) BEFORE MEALS AND HS SUBQ 12/09/17 22:00 01/08/18 21:59 12/10/17 06:22 Lansoprazole (Prevacid) 30 mg DAILY ORAL 12/10/17 09:00 01/08/18 09:44 12/10/17 08:14 Nateglinide (Starlix) 60 mg TIAC ORAL 12/10/17 06:30 01/08/18 12:29 12/10/17 06:20 Ondansetron HCl (Zofran) 4 mg Q6H PRN IVP Nausea & Vomiting 12/09/17 21:00 01/07/18 20:59 Polyethylene Glycol (Miralax) 17 gm DAILYPRN PRN ORAL Constipation 12/09/17 21:00 01/07/18 20:59 Sevelamer Carbonate (Renvela) 800 mg THREE TIMES A DAY ORAL 12/10/17 09:00 01/08/18 12:59 12/10/17 08:14 Tamsulosin HCl (Flomax) 0.4 mg BEDTIME ORAL 12/09/17 21:00 01/08/18 20:59 12/09/17 21:02 Temazepam (Restoril) 15 mg HSPRN PRN ORAL Insomnia 12/09/17 21:00 12/15/17 20:59 Allergies: Coded Allergies: No Known Allergies (Unverified , 12/08/17) ROS Limited/Unobtainable: No Constitutional: Reports: no symptoms HEENT: Reports: no symptoms Cardiovascular: Reports: no symptoms Respiratory: Reports: shortness of breath Gastrointestinal/Abdominal: Reports: no symptoms Genitourinary: Reports: no symptoms Neurologic/Psychiatric: Reports: no symptoms Subjective 67 YO M admitted with dyspnea. Now congestive heart failure due to overload. Cover for Int Med-Dr Miller. Objective Last Vital Signs Date Time Temp Pulse Resp B/P (MAP) Pulse Ox O2 Delivery O2 Flow Rate FiO2 12/10/17 09:43 98 Nasal Cannula 2.0 28 12/10/17 09:42 94 18 12/10/17 08:15 145/79 12/10/17 08:00 98.7 98.7 General Appearance: WD/WN, no apparent distress, mild distress EENT: PERRL/EOMI, normal ENT inspection Neck: non-tender, normal alignment, supple, normal inspection Cardiovascular: normal peripheral pulses, normal rate, regular rhythm, no gallop/murmur, no JVD Respiratory/Chest: chest wall non-tender, lungs clear, normal breath sounds, no respiratory distress, no accessory muscle use Abdomen: normal bowel sounds, non tender, soft, no organomegaly, no mass Edema: mild edema Neurologic: process engineering manager II-XII grossly normal, no motor/sensory deficits Skin: normal pigmentation, warm/dry Laboratory Tests Test 12/10/17 07:00 White Blood Count 12.5 K/UL (4.8-10.8) #H Red Blood Count 3.73 M/UL (4.70-6.10) L Hemoglobin 10.0 G/DL (14.2-18.0) L Hematocrit 31.5 % (42.0-52.0) L Mean Corpuscular Volume 85 FL (80-99) Mean Corpuscular Hemoglobin 26.8 PG (27.0-31.0) L Mean Corpuscular Hemoglobin Concent 31.7 G/DL (32.0-36.0) L Red Cell Distribution Width 14.3 % (11.6-14.8) Platelet Count 164 K/UL (150-450) Mean Platelet Volume 7.8 FL (6.5-10.1) Neutrophils (%) (Auto) 84.3 % (45.0-75.0) H Lymphocytes (%) (Auto) 8.2 % (20.0-45.0) L Monocytes (%) (Auto) 6.2 % (1.0-10.0) Eosinophils (%) (Auto) 0.4 % (0.0-3.0) Basophils (%) (Auto) 0.9 % (0.0-2.0) Sodium Level 141 MMOL/L (136-145) Potassium Level 4.0 MMOL/L (3.5-5.1) Chloride Level 101 MMOL/L (98-107) Carbon Dioxide Level 30 MMOL/L (21-32) Anion Gap 10 mmol/L (5-15) Blood Urea Nitrogen 51 mg/dL (7-18) H Creatinine 7.9 MG/DL (0.55-1.30) H Estimat Glomerular Filtration Rate 6.8 mL/min (>60) Glucose Level 133 MG/DL (74-106) #H Hemoglobin A1c 7.5 % (4.3-6.0) H Uric Acid 5.7 MG/DL (2.6-7.2) Calcium Level 7.4 MG/DL (8.5-10.1) L Phosphorus Level 5.8 MG/DL (2.5-4.9) H Magnesium Level 2.1 MG/DL (1.8-2.4) Total Bilirubin 0.5 MG/DL (0.2-1.0) Gamma Glutamyl Transpeptidase 30 U/L (5-85) Aspartate Amino Transf (AST/SGOT) 9 U/L (15-37) L Alanine Aminotransferase (ALT/SGPT) 19 U/L (12-78) Alkaline Phosphatase 79 U/L (46-116) Total Creatine Kinase 63 U/L (26-308) Troponin I 0.000 ng/mL (0.000-0.056) Pro-B-Type Natriuretic Peptide > 20616 pg/mL (0-125) H Total Protein 6.3 G/DL (6.4-8.2) L Albumin 3.1 G/DL (3.4-5.0) L Globulin 3.2 g/dL Albumin/Globulin Ratio 1.0 (1.0-2.7) Triglycerides Level 108 MG/DL (30-150) Cholesterol Level 143 MG/DL (< 200) LDL Cholesterol 89 mg/dL (<100) HDL Cholesterol 42 MG/DL (40-60) Cholesterol/HDL Ratio 3.4 (3.3-4.4) Thyroid Stimulating Hormone (TSH) 5.271 uiU/mL (0.358-3.740) Microbiology Date/Time Source Procedure Growth Status 12/08/17 20:40 Blood Blood Culture - Preliminary NO GROWTH AFTER 24 HOURS Resulted 12/08/17 20:40 Blood Blood Culture - Preliminary NO GROWTH AFTER 24 HOURS Resulted Intake and Output 12/09/17 12/10/17 19:00 07:00 Intake Total 320 ml 480 ml Output Total 3110 ml 3000 ml Balance -2790 ml -2520 ml Intake Oral 320 ml 120 ml Other 360 ml Output Urine Total 110 ml Hemodialysis UF 3000 ml 3000 ml # Voids 2 1 # Bowel Movements 1 Assessment/Plan Problem List: (1) ESRD (end stage renal disease) on dialysis Assessment & Plan: S/P hemodialysis 12/09/17. See nephrology note. (2) CHF (congestive heart failure) Assessment & Plan: ?volume overload? See cardiology note. (3) Diabetes mellitus type II, controlled Assessment & Plan: continue starlix and humalog sliding scale. (4) HTN (hypertension) Assessment & Plan: Continue norvasc (5) Diabetic retinopathy (6) Elevated troponin Assessment & Plan: ?due to ESRD? See cradiology recs. (7) Acute respiratory failure Assessment & Plan: Due to CHF and volume overload. S/P hemodialysis 12/09/17 with some improvement. Follow pulmonary recs. Status: progressing Oren Gonzales MD Dec 10, 2017 10:40
--- NOTE | 2017-12-10 11:10 | Nephrology Progress Note ---
Assessment/Plan Problem List: (1) ESRD (end stage renal disease) (2) CHF (congestive heart failure) (3) Diabetic retinopathy (4) HTN (hypertension) (5) Acute systolic CHF (congestive heart failure) Assessment ESRD fistula acces left arm Respiratory distress: CHF and or Pneumonia HTN DM Plan HD done 12/09 again 12/11 with UF Adjust BP meds Pulm support 2D Echo Left ventricular ejection fraction estimated to be 40%. Per orders Subjective ROS Limited/Unobtainable: No Constitutional: Reports: other - feels better Objective Objective Last 24 Hour Vital Signs Date Time Temp Pulse Resp B/P (MAP) Pulse Ox O2 Delivery O2 Flow Rate FiO2 12/10/17 09:43 98 Nasal Cannula 2.0 28 12/10/17 09:43 Nasal Cannula 2.0 28 12/10/17 09:42 94 18 Nasal Cannula 2.0 28 12/10/17 08:15 69 145/79 12/10/17 08:14 69 145/79 12/10/17 08:00 98.7 68 19 145/79 97 Nasal Cannula 2.0 98.7 12/10/17 04:00 98.2 64 20 142/79 99 Nasal Cannula 2.0 98.2 12/10/17 04:00 62 12/09/17 23:58 66 12/09/17 21:02 77 158/77 12/09/17 20:13 Nasal Cannula 2.0 28 12/09/17 20:13 99 Nasal Cannula 2.0 28 12/09/17 20:00 98.0 77 20 158/77 98 Nasal Cannula 2.0 98.0 12/09/17 19:53 71 12/09/17 19:44 97 18 Nasal Cannula 2.0 28 12/09/17 18:58 163/77 12/09/17 18:00 70 16 163/77 99 Nasal Cannula 2.0 12/09/17 17:12 Nasal Cannula 2.0 12/09/17 17:10 97.7 77 16 181/76 Nasal Cannula 2.0 97.7 12/09/17 17:00 77 16 181/76 99 Nasal Cannula 2.0 12/09/17 16:00 66 12/09/17 16:00 98.1 64 16 140/73 99 Nasal Cannula 2.0 98.1 66 12/09/17 15:00 64 16 152/71 100 Nasal Cannula 2.0 12/09/17 14:00 98.1 75 16 167/71 Nasal Cannula 2.0 98.1 12/09/17 14:00 Nasal Cannula 2.0 12/09/17 14:00 74 18 167/71 100 Nasal Cannula 2.0 12/09/17 13:00 84 20 154/77 99 Nasal Cannula 2.0 12/09/17 12:00 78 12/09/17 12:00 98.0 78 18 170/88 100 Nasal Cannula 2.0 98.0 12/09/17 11:33 79 181/80 12/09/17 11:18 79 16 97 Facial 28 Intake and Output 12/09/17 12/10/17 19:00 07:00 Intake Total 320 ml 480 ml Output Total 3110 ml 3000 ml Balance -2790 ml -2520 ml Intake Oral 320 ml 120 ml Other 360 ml Output Urine Total 110 ml Hemodialysis UF 3000 ml 3000 ml # Voids 2 1 # Bowel Movements 1 Laboratory Tests 12/10/17 07:00: White Blood Count 12.5#H, Red Blood Count 3.73L, Hemoglobin 10.0L, Hematocrit 31.5L, Mean Corpuscular Volume 85, Mean Corpuscular Hemoglobin 26.8L, Mean Corpuscular Hemoglobin Concent 31.7L, Red Cell Distribution Width 14.3, Platelet Count 164, Mean Platelet Volume 7.8, Neutrophils (%) (Auto) 84.3H, Lymphocytes (%) (Auto) 8.2L, Monocytes (%) (Auto) 6.2, Eosinophils (%) (Auto) 0.4, Basophils (%) (Auto) 0.9, Sodium Level 141, Potassium Level 4.0, Chloride Level 101, Carbon Dioxide Level 30, Anion Gap 10, Blood Urea Nitrogen 51H, Creatinine 7.9H, Estimat Glomerular Filtration Rate 6.8, Glucose Level 133#H, Hemoglobin A1c 7.5H, Uric Acid 5.7, Calcium Level 7.4L, Phosphorus Level 5.8H, Magnesium Level 2.1, Total Bilirubin 0.5, Gamma Glutamyl Transpeptidase 30, Aspartate Amino Transf (AST/SGOT) 9L, Alanine Aminotransferase (ALT/SGPT) 19, Alkaline Phosphatase 79, Total Creatine Kinase 63, Troponin I 0.000, Pro-B-Type Natriuretic Peptide > 72128P, Total Protein 6.3L, Albumin 3.1L, Globulin 3.2, Albumin/Globulin Ratio 1.0, Triglycerides Level 108, Cholesterol Level 143, LDL Cholesterol 89, HDL Cholesterol 42, Cholesterol/HDL Ratio 3.4, Thyroid Stimulating Hormone (TSH) 5.271H Height (Feet): 5 Height (Inches): 1.00 Weight (Pounds): 138 General Appearance: no apparent distress Cardiovascular: tachycardia Respiratory/Chest: decreased breath sounds Abdomen: soft PAPI SHANE Dec 10, 2017 11:10
[2017-12-10] MEDS ORDERED: COREG6.25 MG ORAL (11:19)
[2017-12-10 12:00] VITALS: BP 162/77
[2017-12-10 12:51] VITALS: BP 162/77
[2017-12-10] MEDS ORDERED: Carvedilol 6.25mg Tab ORAL SCH (21:00)
--- NOTE | 2017-12-11 08:03 | Discharge Summary ---
Discharge Summary Discharge Summary _ DATE OF ADMISSION: 12/08/2017 DATE OF DISCHARGE: 12/10/2017 REASON FOR ADMISSION: 67 years old male with a past medical history significant for end-stage renal disease, on hemodialysis, diabetes mellitus type 2, diabetic retinopathy right eye, asthma, hypertension, presented to emergency room with complaint of dyspnea. Patient was unable to speak in full sentences secondary to respiratory distress. Patient was tachypneic , tachycardic , pCO2 49 on ABG. Patient required placement on BiPAP. Blood pressure -230/109. First troponin was negative. ProBNP over 35,000. WBC 10.5. Hemoglobin 11.4 hematocrit 36.6. Lactic acid 1.5. BUN 42 ,creatinine 8.1 ,consistent with known history of end-stage renal disease. Chest x-ray revealed cardiomegaly and pulmonary congestion. ECG with ST no acute ischemic changes Patient admitted with diagnosis of acute respiratory failure, accelerated hypertension , congestive heart failure, history of asthma . diabetes mellitus , diabetic retinopathy CONSULTANTS: medical dosimetrist Dr. Milner pulmonary Dr. Hines olericulturist Dr. Barbour HOSPITAL COURSE: Patient admitted to telemetry floor. Cardiology, pulmonology and nephrology consults were requested. Patient undergone hemodialysis on 12/09. Renal parameters, electrolytes and volumes were closely monitored. Next hemodialysis on 12/11. Abstract Manager closely followed. Patient initially was on BiPAP. After hemodialysis he was able to be weaned from the BiPAP. Supplemental oxygen provided via nasal cannula and titrated to keep pulse oximetry above 92%. Pulmonary toilet provided as needed. Pulse oximetry stable prior to discharge. Follow-up chest x-ray revealed improved but persistent congestion. No evidence of asthma exacerbation ,stable respiratory status after hemodialysis Acute respiratory failure was likely due to acute congestive heart failure and fluid overload. Automotive Project Engineer closely followed. First troponin was negative, second one was minimally elevated, and the last troponin was negative. Mild elevation of troponin was insignificant, likely due to congestive heart failure and renal failure. No acute ischemic changes on EKG. No cardiac complaints. Patient was ruled out for acute VT. Blood pressure was managed with calcium channel josephine and beta josephine/Coreg. Dose of Coreg was increased. Blood pressure stabilized. Echocardiogram revealed mild to moderate global hypokinesis. Mild left ventricular hypertrophy. Ejection fraction of 40%. Moderate mitral regurgitation. Probably significant diastolic dysfunction. Lipid panel stable. Patient recommended to follow-up with the medical dosimetrist as outpatient for further management of congestive heart failure. Blood sugar was managed with Starlix and sliding scale insulin as needed. Blood sugar remained stable. [id number], nearly at goal. DVT prophylaxis provided Supportive care provided. Bowel regimen instituted Patient was stable for discharge home Patient was instructed that dialysis scheduled for the morning as outpatient. FINAL DIAGNOSES: Acute respiratory failure -resolved Acute systolic congestive heart failure Elevated troponin Accelerated hypertension d Diabetes mellitus type 2 Diabetic retinopathy DISCHARGE MEDICATIONS: See Medication Reconciliation list. DISCHARGE INSTRUCTIONS: Patient was discharged home, follow-up with outpatient dialysis in the morning and thereafter according to schedule. Patient to follow-up with a primary care provider next week. I have been assigned to dictate discharge summary for this account. I was not involved in the patient's management. Agnieszka Anthony NP Dec 11, 2017 08:03
== END 2017-12-10 13:35 | disposition home or self-care (01) | DRG 291 ==
LOC: EDBD 20:19 → EMR 20:40 → EDBEDREQ 21:12 → ICU 21:57 → EDBEDREQ 22:04 → 2E 12-09 18:45
PROC: 5A1D70Z Performance of Urinary Filtration, Intermittent, Less than 6 Hours Per Day (ICD-10-PCS; principal; 2017-12-09)
DX: I13.2 Hypertensive heart and chronic kidney disease with heart failure and with stage 5 chronic kidney disease, or end stage renal disease (principal); N18.6 End stage renal disease; J96.00 Acute respiratory failure, unspecified whether with hypoxia or hypercapnia; I50.21 Acute systolic (congestive) heart failure; Z99.2 Dependence on renal dialysis; E11.22 Type 2 diabetes mellitus with diabetic chronic kidney disease; E11.319 Type 2 diabetes mellitus with unspecified diabetic retinopathy without macular edema; Z87.891 Personal history of nicotine dependence; J45.909 Unspecified asthma, uncomplicated; I34.0 Nonrheumatic mitral (valve) insufficiency
CPT/HCPCS: 36415; 36600; 71045; 80053; 80061; 80069; 82550; 82553; 82803; 82962; 82977; 83036; 83605; 83690; 83735; 83880; 84100; 84443; 84484; 84550; 85007; 85025; 85610; 85730; 86140; 87040; 87081; 93005; 93306; 94640; 94660; 94664; 94760; 99291; J1815; J7620